=== PATIENT | male | born 2000 | race Caucasian/White ===

== ENCOUNTER 2020-12-16 05:58 | Emergency (ER) | payer OTHER ==
[~2020-12-16] VITALS: Ht 177.8 cm; Wt 60.8 kg
[2020-12-16] MEDS ORDERED: PROAIR HFA8.5 GM INH (06:18)
[2020-12-16] MEDS ORDERED: XANAX 0.5 MG0.5 M1 PO (06:18)
[2020-12-16 06:59] LABS: ABSOLUTE BASOPHILS 0.1 thou/uL (0.0-0.2); ABSOLUTE EOSINOPHILS 0.2 thou/uL (0.0-0.7); ABSOLUTE LYMPHOCYTES 3.5 thou/uL (0.8-5.3); ABSOLUTE NEUTROPHILS 4.7 thou/uL (1.6-8.1); BASOPHILS 0.9 %; EOSINOPHILS 2.3 %; HEMATOCRIT 43.4 % (42.0-52.0); LYMPHOCYTES 36.8 %; MCH 31.3 pg (26.0-34.0); MCHC 34.5 g/dL (28.0-37.0); MCV 90.7 fL (80.0-100.0); MONOCYTES 10.5 %; MPV 7.5 fl. (7.2-11.1); NUCLEATED RBCS 0 /100WBC; PLATELET COUNT* 343 thou/uL (150-400); POLYS 49.5 %; RBC 4.78 mil/uL (4.50-6.00); RDW-CV 12.5 % (10.5-14.5); WBC 9.5 thou/uL (4.0-11.0)
[2020-12-16 07:06] LABS: CALCIUM 9.3 mg/dL (8.5-10.1); CREATININE 0.8 mg/dL (0.6-1.3); POTASSIUM 3.7 mmol/L (3.5-5.1)
[2020-12-16 07:10] LABS: ALBUMIN 4.2 g/dL (3.4-5.0); TOTAL BILIRUBIN 0.3 mg/dL (<0.1-1.0); TOTAL PROTEIN 8.2 g/dL (6.4-8.2)
[2020-12-16 07:27] VITALS: BP 110/66
--- NOTE | 2020-12-16 11:07 | EKG ---
[place] [address] ELECTROCARDIOGRAM REPORT Name: [facility] Room: [facility]#: [id number] Admission: 12/16/20 Attend Phys: Discharge: 12/16/20 Date of : [birth year] Date of Service: 12/16/20604 Report #: [id number] THIS REPORT FOR: //name// [facility] ED Test Date: 2020-12-16 Test Time: 06:05:14 Pat Name: BRANDI ALEJANDRA Department: Room: Gender: [employer]: : 2000 Requested By: Basilia Acharya Order Number: [id number] MD: Luis Iyer Measurements Intervals [place] Rate: 83 P: 73 MS: 130 QRS: 71 QRSD: 78 T: 60 QT: 344 QTc: 405 Interpretive Statements Sinus rhythm RSR' in V1 or V2, probably normal variant No previous ECG available for comparison Electronically Signed On 12-16-2020 11:07:01 CDT by Luis Iyer [email or web address] <ELECTRONICALLY SIGNED> By: Luis Iyer MD, [facility] 12/16/20 [id number] Luis Iyer MD, [facility] /EPI
== END 2020-12-16 07:29 | disposition home or self-care (01) ==
LOC: M.ERS 05:58
PROVIDERS: Personal Emergency Response Attendant
DX: F41.9 Anxiety disorder, unspecified (principal); R42 Dizziness and giddiness; Z20.822 Contact with and (suspected) exposure to COVID-19; F17.200 Nicotine dependence, unspecified, uncomplicated